=== PATIENT | female | born 1945 | race Caucasian/White ===

== ENCOUNTER → 2016-06-07 | Outpatient (CLI) | payer MEDICARE, OTHER ==
[~2016-06-07] MED LIST: OMEPRAZOLE20 MG PO
== END ==
LOC: HEART 5 10:46
DX: J44.9 Chronic obstructive pulmonary disease, unspecified (principal); J43.9 Emphysema, unspecified
CPT/HCPCS: 94060; 94729

== ENCOUNTER 2016-08-07 16:21 | Emergency (ER) | payer MEDICARE, OTHER | END 2016-08-07 17:55 | disposition home or self-care (01) | LOC: ER1 16:21 | DX: N39.0 Urinary tract infection, site not specified (principal); E78.5 Hyperlipidemia, unspecified; I10 Essential (primary) hypertension; F17.210 Nicotine dependence, cigarettes, uncomplicated | CPT/HCPCS: 81001; 87077; 87086; 87186; 99283 ==

== ENCOUNTER → 2021-05-25 | Outpatient (CLI) | payer MEDICARE, OTHER ==
[~2021-05-25] MED LIST changes: +ALBUTEROL1.25 MG/3 INH; +CLARITIN10 MG PO; +CLOPIDOGREL75 MG PO; +COZAAR50 MG PO; +ECOTRIN81 MG PO; +FISH OIL 1,0001 EACH PO; +FOLGARD TABLET1 EACH PO; +IMDUR ER TAB 3030 MG PO; +MICROZIDE12.5 MG PO; +MOBIC7.5 MG PO; +NITROGLYCERIN0.4 MG SL; +PROAIR HFA8.5 GM INH; +SIMVASTATIN10 MG PO; +SINGULAIR10 MG PO; +TUMERIC PO; +TURMERIC1 GM PO; +VITAMIN E
== END ==
LOC: LBRF 13:25
DX: R19.7 Diarrhea, unspecified (principal)
CPT/HCPCS: 87324; 87449